=== PATIENT | male | born 1980 | race Caucasian/White ===

== ENCOUNTER 2017-04-26 07:35 | Emergency (ER) | payer OTHER ==
[2017-04-26 07:49] VITALS: BP 158/88
--- NOTE | 2017-04-26 08:24 | UC ---
Ear Complaint HPI - HPI Summary HPI Summary: left ear pain after congestion and cough for about 5 days. He has hx of ear infections and this feels similar to present. - History of Current Complaint Chief Complaint: UCEar Stated Complaint: LEFT EAR ACHE Time Seen by Provider: 04/26/17 08:16 Hx Obtained From: Patient, Family/[employer] Onset/Duration: Gradual Onset, Lasting Days Severity Initially: Mild Severity Currently: Moderate Aggravating Factors: Nothing Alleviating Factors: Nothing Associated Signs/Symptoms: Positive: URI Symptoms - Allergies/Home Medications Allergies/Adverse Reactions: Allergies Allergy/AdvReac Type Severity Reaction Status Date / Time No Known Allergies Allergy Verified 04/26/17 07:49 PMH/Surg Hx/FS Hx/Imm Hx Previously Healthy: No - ear infections. Obesity. - Surgical History Surgical History: None - Family History Known Family History: Positive: Other - No related ear infections in the family. - Social History Lives: With Family Alcohol Use: Rare Substance Use Type: None Smoking Status (MU): Heavy Every Day Tobacco Smoker Type: Cigarettes Amount Used/How Often: 1/2ppd Review of Systems ENT: Ear Ache, Sinus Congestion All Other Systems Reviewed And Are Negative: Yes Physical Exam Triage Information Reviewed: Yes Appearance: Well-Appearing, No Pain Distress, Well-Nourished Vital Signs: Initial Vital Signs Temp 98.3 F 04/26/17 07:44 Pulse 93 04/26/17 07:44 Resp 22 04/26/17 07:44 BP 158/88 04/26/17 07:44 Pulse Ox 97 04/26/17 07:44 Vital Signs Reviewed: Yes ENT Exam: Normal ENT: Positive: Pharyngeal erythema, Nasal congestion, TM bulging, TM red, Hoarse voice, Uvula midline. Negative: Nasal drainage, Tonsillar swelling, Tonsillar exudate, Trismus, Sinus tenderness Neck: Positive: Supple, Nontender, No Lymphadenopathy Respiratory: Positive: Chest non-tender, Lungs clear, Normal breath sounds, No respiratory distress, No accessory muscle use. Negative: Respiratory distress, Crackles, Rhonchi, Stridor, Wheezing Cardiovascular: Positive: RRR, No Murmur, Pulses Normal Abdomen Description: Positive: Nontender, No Organomegaly, Soft. Negative: Distended, Guarding Musculoskeletal: Positive: Strength Intact, ROM Intact, No Edema Neurological: Positive: Alert, Muscle Tone Normal. Negative: Fatigued Skin: Negative: rashes Ear Complaint Course/Dx - Differential Dx/Diagnosis Provider Diagnoses: Left otitis media. We described f/u and decongestants. Discharge - Discharge Plan Condition: Good Disposition: HOME Prescriptions: Amoxicillin PO (*) [Amoxicillin 500 MG CAP*] 500 mg PO TID #30 cap Patient Education Materials: Otitis Media (ED) Additional Instructions: Follow up with primary care if needed.
== END 2017-04-26 08:33 | disposition home or self-care (01) ==
LOC: EDBD → UCCORT 07:35
DX: H66.92 Otitis media, unspecified, left ear (principal); E66.9 Obesity, unspecified; F17.210 Nicotine dependence, cigarettes, uncomplicated
CPT/HCPCS: 99202; G0463